=== PATIENT | female | born 1980 | race Caucasian/White ===

== ENCOUNTER → 2021-02-27 08:51 | Outpatient (BNVA) | payer OTHER, SELFPAY | PROVIDERS: Visit Provider Physician Assistant | DX: E66.9 Obesity, unspecified (principal) | CPT/HCPCS: 99202 ==

== ENCOUNTER → 2021-04-02 08:15 | Outpatient (BNVA) | payer OTHER, SELFPAY | PROVIDERS: Visit Provider Dietitian, Registered | DX: E66.9 Obesity, unspecified (principal) | CPT/HCPCS: 97802 ==

== ENCOUNTER 2021-04-03 08:00 | Outpatient (REF) | payer OTHER, SELFPAY ==
[2021-04-03 09:12] LABS: MANUAL DIFF FLAG NO
[2021-04-03 09:20] LABS: Basophils Absolute Auto 0.1 X10*3/uL (0.0-0.2); Basophils Percent Auto 1.2 % (0-2); Eosinophils Absolute Auto 0.4 X10*3/uL (0.0-0.4); Eosinophils Percent Auto 6.2 % (0-4); Hematocrit 40.1 % (37-47); Hemoglobin 12.9 g/dl (12.0-16.0); Imm Gran Abs Auto 0.03 X10*3/uL (0.00-0.03); Imm Gran Pct Auto 0.5 % (0.0-0.4); Lymphocytes Absolute Auto 1.3 X10*3/uL (1.2-4.9); Lymphocytes Percent Auto 21.8 % (20-40); Mean Corpuscular HGB Conc 32.2 g/dl (31.0-35.0); Mean Corpuscular Hemoglobin 28.1 pg (27.0-33.0); Mean Corpuscular Volume 87.4 fL (80-98); Mean Platelet Volume 10.1 fL (9.4-12.3); Monocytes Absolute Auto 0.4 X10*3/uL (0.1-1.2); Neutrophils Absolute Auto 3.8 X10*3/uL (2.0-8.3); Neutrophils Percent Auto 64.3 % (45-73); Platelet Count 242 X10*3/uL (160-400); Red Blood Count 4.59 X10*6/uL (4.20-5.50); Red Cell Distribution Width 13.1 % (11.0-16.0)
[2021-04-03 09:26] LABS: Estimated Average Glucose 103 mg/dL; Hemoglobin A1c % 5.2 %
[2021-04-03 09:34] LABS: Alanine Aminotransferase 29 U/L (0-31); Albumin Level 4.4 g/dL (3.5-5.0); Alkaline Phosphatase 54 U/L (39-117); Anion Gap 11 (12-20); Aspartate Amino Transferase 21 U/L (5-31); Bilirubin Total 0.2 mg/dL (0.0-1.0); Blood Urea Nitrogen 15 mg/dL (9-16); Calcium 9.2 mg/dL (8.4-10.2); Carbon Dioxide 25 mmol/L (22-29); Chloride 108 mmol/L (96-108); Cholesterol 204 mg/dL; Estimated Glomerular Filt Rate > 60; Glucose Fasting 91 mg/dL (60-99); HDL Cholesterol 51 mg/dL; Iron 45 mcg/dL (30-160); LDL Cholesterol Calculated 135 mg/dl; Percent Iron Saturation 14 % (15-50); Potassium 4.3 mmol/L (3.3-5.1); Sodium 140 mmol/L (135-145); Total Iron Binding Capacity 317 mcg/dL (228-428); Total Protein 7.1 g/dL (6.5-8.0); Triglycerides 93 mg/dL; Unsaturated Iron Binding 272 ug/dL
[2021-04-03 10:00] LABS: Ferritin 22 ng/mL (10-250); TSH reflex Free T4 3.24 uIU/mL (0.32-4.0); Vitamin D 25-OH Total 22.3 ng/mL (>30)
[2021-04-03 10:05] LABS: Folate 15.2 ng/mL (> or = 4.0); Vitamin B12 335 pg/mL (200-900)
[2021-04-04 09:32] LABS: Insulin Level Total 24.6 uIU/mL
[2021-04-05 13:46] LABS: Calcium (PTHI) 8.9 mg/dL (8.6-10.2); PTHI 57 pg/mL (14-64)
[2021-04-06 07:52] LABS: Zinc 101 mcg/dL (60-130)
[2021-04-08 11:12] LABS: Vitamin B1 7 nmol/L (8-30)
[2021-04-10 16:52] LABS: Vitamin A 46 mcg/dL (38-98)
== END 2021-04-03 08:01 | disposition home or self-care (01) ==
LOC: HO.LAB 08:00
PROVIDERS: PCP Nurse Practitioner Family; Visit Provider Physician Assistant
DX: E66.9 Obesity, unspecified (principal)
CPT/HCPCS: 36415; 80053; 80061; 82306; 82607; 82728; 82746; 83036; 83525; 83540; 83970; 84425; 84443; 84590; 84630; 85025; 86140

== ENCOUNTER → 2021-04-13 08:11 | Outpatient (BNVA) | payer MEDICAID, SELFPAY | PROVIDERS: PCP Nurse Practitioner Family; Visit Provider Dietitian, Registered | DX: E66.9 Obesity, unspecified (principal) | CPT/HCPCS: 97803 ==

== ENCOUNTER 2021-07-31 09:19 | Outpatient (REF) | payer OTHER, SELFPAY ==
[2021-07-31 10:51] LABS: Vitamin D 25-OH Total 28.1 ng/mL (>30)
[2021-07-31 11:11] LABS: Folate 15.8 ng/mL (> or = 4.0); Vitamin B12 281 pg/mL (200-900)
[2021-08-04 10:06] LABS: Vitamin B1 10 nmol/L (8-30)
== END 2021-07-31 09:20 | disposition home or self-care (01) ==
LOC: HO.LAB 09:19
PROVIDERS: Visit Provider Physician Assistant
DX: E53.8 Deficiency of other specified B group vitamins (principal); E55.9 Vitamin D deficiency, unspecified; E51.9 Thiamine deficiency, unspecified
CPT/HCPCS: 36415; 82306; 82607; 82746; 84425

== ENCOUNTER → 2021-09-05 10:40 | Outpatient (BNVA) | payer OTHER, SELFPAY | PROVIDERS: Visit Provider Physician Assistant | DX: E66.9 Obesity, unspecified (principal); Z68.32 Body mass index [BMI] 32.0-32.9, adult | CPT/HCPCS: 99212 ==

== ENCOUNTER 2025-09-29 10:19 | Outpatient (AMB) | payer OTHER, SELFPAY ==
--- NOTE | 2025-09-29 10:34 | MHC.OFFVIS ---
Vital Signs 09/29/25 10:36 Height 5 ft 4 in Weight 187 lb 2.759 oz BMI 32.1 BP 114/82 Blood Pressure Location Lt brachial Position Sitting Pulse 70 Pulse Source Pulse Oximeter Pulse Oximetry (%) 99 Oxygen Delivery Method Room Air Intake Visit Reasons: Low baseline cortisol Intake Note: New patient externally referred by PCP for Low Cortisol. 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 Patient had . a.m. cortisol level of 4.1. She experiencing symptoms of wt gain , hair loss , mood swings , easy bruising . She is not taking any exogenous steroids in the past a regular basis. No hirsuitism . PCP treats hypothyroidism . C/o hair loss . has prediabetes but no HTN The patient is a 45-year-old female presenting with suspected low cortisol levels and associated symptoms. She reports weight gain, hair loss, cold intolerance, mood swings, and lack of appetite, which have been persistent and troubling. Additionally, she experiences easy bruising and excessive sleepiness, which have impacted her ability to maintain employment. The patient has a history of hypothyroidism, for which she takes 25 mcg of levothyroxine, managed by her primary care physician. She denies any history of steroid use and reports no unusual skin pigmentation or acne. Family history is significant for diabetes and various cancers on both sides, with her mother recently passing away from cancer and diabetes. There is also a reported family history of Princeton's syndrome on her mother's side, although this is not confirmed. The patient reports neurological symptoms, including memory issues, confusion, weakness, and slurred speech, which have been progressively worsening. These symptoms have led to significant functional impairment, including job loss and difficulty with daily activities. She has been diagnosed with sleep apnea and is awaiting treatment with a CPAP machine. The patient also reports episodes of dizziness and fainting, which have been concerning. FOR[facility]LY [facility], [facility] Medical History (Updated 09/29/25 @ 10:40 by Garrison Kothari MD) Low serum cortisol level Vitamin B1 deficiency Vitamin B12 deficiency Vitamin D deficiency Obesity (BMI 30-39.9) GERD (gastroesophageal reflux disease) Fatty liver Ursula's thyroiditis Surgical History Hx of tubal ligation Hx of section Family History Mother Diabetes Asthma Hypertension Father No problems noted. Brother Hernia Son No problems noted. Son No problems noted. Son Calderon syndrome Acid reflux Daughter No problems noted. Daughter No problems noted. Social History Alcohol intake: never Physical Exam Vital Signs: Last Vital Signs Pulse 70 09/29/25 10:36 BP 114/82 09/29/25 10:36 Pulse Ox 99 09/29/25 10:36 Oxygen Delivery Method Room Air 09/29/25 10:36 BMI result Body Mass Index 32.1 Const Other: There was a absence of any skin hypopigmentation or hyperpigmentation. Thyroid gland is normal size weighs about 15 g. There were no cushingoid features Assessment & Plan Assessment & Plan (1) Low serum cortisol level: Code(s): R79.89 - Other specified abnormal findings of blood chemistry Category: Medical Plan: 1. Suspected adrenal insufficiency The patient does not with symptoms suggestive of adrenal insufficiency, including weight gain, cold intolerance, and mood swings more typical of Cushings rather than adrenal insufficency . A morning cortisol level test is recommended to confirm the diagnosis, as afternoon levels may be misleading. If results are inconclusive, an ACTH stimulation test may be necessary to assess adrenal function. 2. Roseann's syndrome Given the patient's weight gain and family history, Roseann's syndrome is considered. A 24-hour urine cortisol test is advised to evaluate for excess cortisol production. If elevated, further imaging and endocrine evaluation will be required to identify the source of excess cortisol. 4. Hypothyroidism The patient is currently on levothyroxine 25 mcg daily, managed by her primary care physician. Thyroid function tests should be monitored regularly to ensure adequate control of hypothyroidism. 5. Neurological symptoms The patient reports symptoms suggestive of transient ischemic attacks or small strokes, including memory issues and slurred speech. A referral to a neurologist is strongly recommended for further evaluation, including possible imaging studies to assess for cerebrovascular disease. I discussed with the patient the potential causes of her symptoms, including adrenal insufficiency and Princeton's syndrome. I explained the importance of conducting a morning cortisol test and a 24-hour urine cortisol test to evaluate her adrenal function. We also discussed the need for a neurologist referral to investigate her neurological symptoms further. I emphasized the importance of follow-up and provided information on reputable websites for further reading on endocrine disorders. - Schedule a morning cortisol test at 8:00 AM. 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 - Follow up with your primary care physician to discuss the results and next steps. - Contact a neurologist for an evaluation of your neurological symptoms. - The patient had an opportunity to ask questions regarding treatment plan. The patient expressed understanding and agreement with the above treatment plan. Patient was informed and verbally consented to the use of an ambient scribe for clinic note documentation during this visit. Orders: Orders Cortisol Random 2 Days R79.89 - Other specified abnormal findings of blood chemistry Creatinine, 24 Hr Group Today R79.89 - Other specified abnormal findings of blood chemistry Cortisol, Free 24Hr Urine Today R79.89 - Other specified abnormal findings of blood chemistry Coding Level of Care Code New Pt Level 4 (08054) Diagnoses Low serum cortisol level R79.89
[2025-09-29 10:36] VITALS: BP 114/82; PULSE 70; O2SAT 99; BMI 32.1
--- OUTSIDE RECORDS SUMMARY | 2025-09-29 12:05 | XMS_ITS | Clinical Summary ---
Author Organization [facility] Address [address] [place] [address] Care Team Providers Care Instructor Adjunct Surgical Technician Name Role Phone Unavailable Primary Care Provider Unavailabl e Surgical History Surgery Date Site/Laterality Comments SECTION PROCEDURE: DE DELIVERY ONLY; COMMENT: 3 times TUBAL LIGATION PROCEDURE: HISTORICAL TUBAL LIGATION OTHER SURGICAL HISTORY PROCEDURE: LAPAROSCOPY PROCEDURE NEC; COMMENT: ovarian cyst COLONOSCOPY 04/03/11 PROCEDURE: HISTORICAL COLONOSCOPY; COMMENT: normal; repeat in 18 months ESOPHAGOGASTRODUODENOSCOPY 09/02/11 PROCEDURE: DE ESOPHAGOGASTRODUODENOSCOPY TRANSORAL DIAGNOSTIC; COMMENT: normal Medical History Medical History Date Comments Hypothyroid 06/09/2009 DX:Hypothyroid Family history of malignant neoplasm of gastrointestinal tract 12/26/2009 DX:Family history of maligna nt neoplasm of gastrointestinal tract Acne vulgaris 08/07/2012 DX:Acne vulgaris Family History Medical History Relation Name Comments Diabetes Father Hyperlipidemia Father , CAD Hypertension Father Prostate cancer Father Breast cancer Father's side 1 aunts x3 Diabetes Mother Hyperlipidemia Mother Ovarian cancer Mother's side 1 aunts x2 Colon cancer Other 1 mat aunt x1 and pat aunt x1,mat cousin Lung cancer Uncle 1 Relation Name Status Comments Brother Alive 1,adhd Father (Age 40) colon canc er; diedat age 40 Father's side 1 Father's side 2 Mother Alive DM, breast canc er - diagnosed at 50 y/o Mother's side 1 Mother's side 2 Other 1 Other 2 Son Alive brain tumor Uncle 1 Uncle 2 Social History Tobacco Use Types Packs/Day Years Used Date Smoking Tobacco: Never Smokeless Tobacco: Never Alcohol Use Standard Drinks/Week Comments No 0 (1 standard drink = 0.6 oz pur e alcohol) Comments Unknown Sex and Gender Information Value Date Recorded Sex Assigned at Not on file Legal Sex Female 2:10 PM EST Gender Identity Not on file Sexual Orientation Not on file Obstetrics History Plan of Treatment Health Maintenance Due Date Last Done Comments Breast Cancer Screening 1979 Hepatitis B Vaccines (1 of 3 - 19+ 3-dose series) 1998 Cervical Cancer Screening: P ap Smear 2000 DTaP,Tdap,and Td Vaccines (2 - Td or Tdap) 12/25/2019 12/25/2009 Depression Screening 11/24/2024 COVID-19 Vaccine (1 - 2023-2 5 season) 2025 Influenza Vaccine (#1) 2025 08/05/2011 RSV Immunization Adult Patie nts (1 - 1-dose 75+ series) 2054 HIB Vaccines Aged Out No longer eligi ble based on patient's age to complete this topic HPV Vaccines Aged Out No longer eligi ble based on patient's age to complete this topic Hepatitis A Vaccines Aged Out No long er eligible based on patient's age to complete this topic IPV Vaccines Aged Out No longer eligi ble based on patient's age to complete this topic MMR Vaccines Aged Out No longer eligi ble based on patient's age to complete this topic Meningococcal ACWY Vaccine Aged Out N o longer eligible based on patient's age to complete this topic Meningococcal B Vaccine Aged Out No l onger eligible based on patient's age to complete this topic Pneumococcal Vaccine: Pediat rics (0 to 5 Years) and At-Risk Patients (6 to 49 Years) Aged Out No longer eligi ble based on patient's age to complete this topic RSV Immunization Patients Un tita 20 months Aged Out No longer eligible b ased on patient's age to complete this topic Varicella Vaccines Aged Out No longer eligible based on patient's age to complete this topic
--- OUTSIDE RECORDS SUMMARY | 2025-09-29 12:05 | XMS_ITS | Data Portability ---
Author Organization [place] - [facility], Allergy Address [address] [place] [id number] Care Team Providers Care Geochemical Laboratory Technician Name Role Phone JAYCOBCASSIEIC Primary Care Provider Assessment Encounter Date Assessment Date Assessment LastModified by Organization Details LastModified Time 08/23/2024 08/23/2024 Patient with hoarseness and dysphagia, worsening over 1-2 years. Physical exam unrevealing. Laryngoscopy slightly limited by gag reflux but demonstrated no obstructive pathology. Reviewed with patient that due to overall muscle tension and plumpness of vocal folds, it was difficult to fully evaluate the mucosal surface of the true vocal folds. Given this and her history of vocal fold nodules, recommend video stroboscopy, and would accept voice therapy if recommended. For the dysphagia, recommend modified barium swallow study and return for results, at which time we can address her nasal issues. Continue to work with GI on these issues, and have EGD at recommended intervals. Not available 08/23/2024 09:45:43 12/08/2024 12/08/2024 Patient with chronic hoarseness. Saw Megan Trevino [facility] for stroboscopy, which demonstrated reflux changes and a pre-nodular area on one vocal fold. Also had FEES which showed no penetration nor aspiration. Reviewed with patient modified barium swallow study is likely to add much to the picture; we will not reschedule this. Reviewed there is evidence of GERD on both the laryngoscopy performed here and on the stroboscopy at [facility]. Recommend more aggressive acid reflux control with omeprazole 40 mg in the morning and famotidine 40 mg in the evening. Dosing instructions reviewed and patient understands. Also was given hand out on dietary and lifestyle modifications for GERD and recommended Reflux Gourmet. Recommend patient keep her follow up with [facility] for the pre-nodule. Continue to work with GI. Avoid smoking. Recommend follow up here in 3 months. She could not stay to schedule; her daughter in law is in labor. She will call to schedule. Not available 12/08/2024 11:21:43 Plan of Treatment Reminders Order Date Submit Date Provider Last Modified By Organization Details Last Modified Time Details Appointments None recorded. Lab None recorded. Referral None recorded. Procedures laryngoscop y, flexible or rigid fiberoptic, with stroboscopy (PROC) - Referral for strobe. Barium swallow date pending. Thank you. 2023 024 [email or web address] 2 Megan Trevino [place], [address], [address], [place], [address], 4 15:03:22 Surgeries None recorded. Imaging [place], modified barium swallow study 2023 024 [email or web address] [facility], [address] [place], [address], 4 10:45:05 Medication Orders famotidine 40 mg tablet 2024 025 [facility][id number], [address] [place], [address], 5 10:47:41 omeprazole 40 mg capsule,del ayed release 2024 025 [facility][id number], [address] [place], [address], 5 10:47:40 fluticasone propionate 50 mcg/actuati on nasal spray,suspe nsion 2024 025 [facility][id number], [address] [place], [address], 5 10:47:05 Patient TargetsNo targets recorded. Patient InstructionsNo instructions recorded. Reason for Referral None Reported. 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 Active 2022 Nodules of vocal cords; Note: Date Diagnosed : 3 2:55 PM (J38.2) Not Available [facility] 4 02:35:54 Dysphonia 02256378 Active 2023 Seema henderson [facility] 4 09:10:21 Dysphagia 90566421 Active 2023 Seema henderson [facility] 4 09:32:44 Gastroesop hageal reflux disease without esophagiti s 306380617 Active 2023 Seema henderson [facility] 4 09:43:41 Posterior rhinorrhea 78193667 Active 2024 Seema henderson [facility] 5 10:46:36 Problem Notes None recorded. Procedures Surgical History Date Name Laterality Status Provider Name and Address Organization Details Recorded Time 08/23/20 24 Fiberoptic Laryngoscopy (Comprehensive) completed Seema Wilson [facility] 08/23/2024 09:42:07 Imaging Results None recorded. Procedure Notes None recorded. Medical Equipment None Reported. Allergies No known drug allergies Medications Name Sig Start Date Stop Date Status Note LastModified by Organization Details LastModified Time Prescript ion - Prior Authoriza tion Request 40 mg QAM 30 minutes before first food or beverage of the day 2024 active Not Available Not Available Not Avai lable quickvue at-home covid-19 t 10/13 completed Not Available Not Available Not Available levothyro xine 137 mcg tablet active Medicati on ID: [id number] B rand Name: levothyr oxine Se nd Method: E-Prescr ibed Sub s Allowed: subs OK Medic ationGen ericName : levothyr oxine Not Available Not Available Not Available cetirizin e 10 mg tablet TOME 1 TABLETA POR V A ORAL TODOS LOS D active Not Available Not Available No t Available meloxicam 15 mg tablet TOME GREGORIA TABLETA POR V A ORAL TODOS LOS D POR 10 D CON ALIMENTO active Not Available Not Available No t Available ondansetr on HCl 4 mg tablet 10/13 completed Medicati on ID: [id number] B rand Name: sebastián fischer HCl Send Method: E-Prescr ibed Sub s Allowed: subs OK Medic ationGen ericName : sebastián fischer HCl Not Available Not Available Not Available famotidin e 40 mg tablet Take 1 tablet every day by oral route in the evening for 30 days. active Not Available Not Available No t Available prednison e 20 mg tablet 10/13 completed Not Available Not Available Not Available peg-elect rolyte solution 420 gram oral solution 1 GALLON BY MOUTH ONCE,INS TR:TO RELIEVE SEVERE CONSTIPA TION 10/13 completed Not Available Not Available Not Available omeprazol e 40 mg capsule,d elayed release active Not Available Not Available Not Available acetamino phen 500 mg tablet TAKE 2 TABLETS BY MOUTH EVERY 6 HOURS NEEDED FOR FEVER active Not Available Not Available No t Available pantopraz ole 20 mg tablet,de layed release TAKE 1 TABLET BY MOUTH DAILY BEFORE BREAKFAS T,X30 DAYS 12/08 completed Not Available Not Available Not Available Flarex 0.1 % eye drops,cuong pension INSTILL 1 DROP INTO BOTH EYES THREE TIMES A DAY SHAKE WELL 10/13 completed Not Available Not Available Not Available amitripty line 25 mg tablet TOME 1 TABLETA POR V A ORAL TODOS LOS D AL ACOSTARS E active Not Available Not Available No t Available dexametha sone 1 mg tablet TAKE 1 TABLET BY MOUTH ONCE...T O BE TAKEN AT 11PM THE NIGHT BEFORE LABS ARE DRAWN. 12/08 completed Not Available Not Available Not Available amitripty line 10 mg tablet TOME 1 TABLETA POR V A ORAL TODOS LOS D AL ACOSTARS E 10/13 completed Not Available Not Available Not Available omeprazol e 20 mg capsule,d elayed release TAKE 1 CAPSULE BY MOUTH DAILY BEFORE BREAKFAS T FOR 30 DAYS active Not Available Not Available No t Available magnesium citrate oral solution active Medicati on ID: [id number] B rand Name: magnesiu m citrate Send Method: E-Prescr ibed Sub s Allowed: subs OK Medic ationGen ericName : magnesiu m citrate Not Available Not Available Not Available fluticaso ne propionat e 50 mcg/actua tion nasal spray,cuong pension Firth 1 spray every day by intranas al route in the morning for 30 days. active Not Available Not Available No t Available naproxen 500 mg tablet active Not Available Not Available Not Available Ventolin HFA 90 mcg/actua tion aerosol inhaler INHALE 2 PUFFS CADA CUATRO HORAS CUANDO SEA NECESARI O FOR WHEEZING active Not Available Not Available No t Available Laxative (bisacody l) 5 mg tablet,de layed release 12/08 completed Medicati on ID: [id number] B rand Name: Laxative (bisacod yl) Send Method: E-Prescr ibed Sub s Allowed: subs OK Medic ationGen ericName : Laxative (bisacod yl) Not Available Not Available Not Available moxifloxa elen 0.5 % eye drops 10/13 completed Medicati on ID: [id number] B rand Name: moxiflox acin Sen d Method: E-Prescr ibed Sub s Allowed: subs OK Medic ationGen ericName : moxiflox acin Not Available Not Available Not Available cholecalc iferol (vitamin D3) 1,250 mcg (50,000 unit) capsule active Medicati on ID: [id number] B rand Name: cholecal ciferol (vitamin D3) Send Method: E-Prescr ibed Sub s Allowed: subs OK Medic ationGen ericName : cholecal ciferol (vitamin D3) Not Available Not Available Not Available Gavilax 17 gram/dose oral powder DISSOLVE 17 GM BY MOUTH DAILY AT BEDTIME IN WATER OR JUICE 10/13 completed Not Available Not Available Not Available tranexami c acid 650 mg tablet TAKE 2 TABLETS BY MOUTH 3 TIMES A DAY FOR A MAX OF 5 DAYS DURING MONTHLY MESNTRUA TION 10/13 completed Not Available Not Available Not Available Xiidra 5 % eye drops in a dropperet te active Not Available Not Available Not Available Tirosint 175 mcg capsule PLEASE SEE ATTACHED FOR DETAILED DIRECTIO NS 10/13 completed Not Available Not Available Not Available BinaxNOW COVID-19 Ag Self Test kit TEST DIRECTED TODAY 10/13 completed Not Available Not Available Not Available Vitals Date Recorded Body height Body weight Provider Name and Address Organization Details Last Updated DateTime 12/08/2024 162.56 cm 24862.59 g Kira Woods [place] [facility] 12/08/2024 10:25:23 Date Recorded Body height Body mass index (BMI) Body weight Provider Name and Address Organization Details Last Updated DateTime 08/23/2024 162.56 cm 31.8 kg/m2 66411.59 g Angie Mora [facility] 08/23/2024 08:58:02 Date Recorded Body height Body mass index (BMI) Body weight Provider Name and Address Organization Details Last Updated DateTime 10/13/2024 162.56 cm 30.9 kg/m2 62883.63 g Pauline Friedman [facility] 10/13/2024 10:21:34 Social History None recorded. Functional Status None recorded. Mental Status None recorded. Family History Nothing Reported. Medical History No medical history recorded. Gynecological HistoryNo gynecological history recorded. Obstetrics History GPAL:G 0 P 0 0 0 0 Past Encounters Encounter ID Performer Location Encounter Start Date Encounter Closed Date Diagnosis/Indication Diagnosis SNOMED-CT Code Diagnosis ICD10 Code Diagnosis IMO Codes Diagnosis Note [id number] SEEMA WILSON PA-C [facility] [address] [address] 08/23/2024 08:49:56 08/23/2024 09:35:25 Dysphonia 14112559 R49.9 Dysphagia 60166373 R13.1 0 Gastroesop hageal reflux disease without esophagitis 361713413 K21.9 [id number] SEEMA WILSON PA-C [facility] [address] [address] 12/08/2024 10:06:17 12/08/2024 10:51:44 Posterior rhinorrhea 48709822 R09.82 Gastroesop hageal reflux disease without esophagitis 761410351 K21.9 Health Concerns Section Related Observation LastModified by Organization Detai ls LastModified Time None Recorded Concern Status LastModified by Organization Details LastModified Time None Recorded Advance Directives Directive None Recorded Payers Insurance Date Sequence Insurance Name Policy Number Policy Alexis Covered Member ID Alexis Member ID Guarantor Name 12/06/2024 1 [facility] (MEDICAID HMO) [id number] Maria De Jesus Alfredo Montalvo [id number] Maria De Jesus Montalvo Notes Date Note Type Note Provider Name and Address Organization Details Recorded Time 08/23/2024 text/html ROS as noted in the HPI 43-year-old non-smoking female presents for evaluation of hoarseness. Previously evaluated in this office in August 2023 at which time she was found to have bilateral vocal fold nodules and was referred for speech therapy. She had one appointment with speech therapy and did some home exercises but had no improvement and feels things are worsening. 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 She has odynophagia, and GI said that it was not GI-related. She has dysphagia to both solids and liquids, feels like it gets stuck just above the sternal notch and won't clear. She had to evacuate a piece of potato from the back of the mouth recently. Has required the Heimlich maneuver once. She cuts her food small and chews thoroughly, alternates food and beverage. She drinks only two bottles of water per day because she finds that more water intake makes her dizzy. She notes she has had to use Thick-It in her water at times, and this helps reduce her choking sensation. She has frequent sore throat, affecting the entire length of the throat, even in abscence of symptoms of illness. Sometimes starts around the sternal notch. She has intermittent hemoptysis, twice so far this month. She has a history of reflux and takes her omeprazole at 4 am, levothyroxine at 5 am, then eats at 8 or 9 am. There has been no fever nor night sweats, and no unintentional weight loss. Still has had a bad taste in her mouth, metallic. Sees gastroenterology for acid reflux and stomach issues. Her mother recently , was found at the end of her life to have throat cancer. Patient was never a smoker and no history of heavy alcohol intake. Two uncles and one aunt may have had throat cancer. She has had two abnormal pap smears in the remote past. Last EGD was 7 years ago. Had a swallow study many years ago. DUSTIN PATE MD [address] [facility],[place] [address], [place], [address], [place] - [facility] 08/23/2024 17:28:29 12/08/2024 text/html ROS as noted in the HPI 44 year old female presents for results of video stroboscopy and modified barium swallow study. Did not have the latter. Our records indicate it was scheduled for 11/25/24 but patient states she was unaware of it. Saw Megan Trevino [facility] for stroboscopy, which demonstrated reflux changes and a pre-nodular area on one vocal fold. Had one session of speech therapy. No reports OMAYRA WERNER MD [address] [facility] [address], [place], [address], [place] - [facility] 12/08/2024 13:21:34 OBGyn Episode No OBEpisode recorded.
== END 2025-09-29 11:05 | disposition home or self-care (01) ==
LOC: HO.ENCR 10:20
PROVIDERS: PCP Nurse Practitioner Family; Visit Provider Internal Medicine Endocrinology, Diabetes & Metabolism
DX: R79.89 Other specified abnormal findings of blood chemistry (principal)
CPT/HCPCS: 99204

== ENCOUNTER → 2025-09-29 10:19 | Outpatient (BNVA) | payer OTHER, SELFPAY | PROVIDERS: PCP Nurse Practitioner Family; Visit Provider Internal Medicine Endocrinology, Diabetes & Metabolism | DX: E03.9 Hypothyroidism, unspecified (principal); R79.89 Other specified abnormal findings of blood chemistry; G31.84 Mild cognitive impairment of uncertain or unknown etiology | CPT/HCPCS: 99202 ==